=== PATIENT | male | born 1930 | race American Indian/Alaskan Native ===

== ENCOUNTER 2016-03-14 01:58 | Inpatient (IN) | payer MEDICARE ==
[2016-03-14] MEDS ORDERED: ROCEPHIN/NS 1 GM/50 ML 1 GM/50 ML BAG IV ONE (02:05)
[2016-03-14] MEDS ORDERED: NACL 0.9% 1000 ML 2,000 ML IV ONE (02:05)
[2016-03-14] MEDS ORDERED: TYLENOL PR ONE ×2 (02:14→02:32)
--- NOTE | 2016-03-14 02:16 | Emergency Department Report ---
ED General Adult HPI - General Chief complaint: Dyspnea/Respdistress Stated complaint: DIFFICULTY IN BREATHING Time Seen by Provider: 03/14/16 02:02 Source: EMS Mode of arrival: Ambulatory Limitations: Altered Mental Status, Physical Limitation - History of Present Illness Initial comments: This is an 86-year-old individual who comes in significant distress must snf. All of the history comes from EMS personnel as well as old records. He was noted the patient to be in respiratory distress. He was started on a 15 nonrebreather. In this reported he was minimally responsive for them when they arrived on scene. They indicate the senior living reported his decline just this evening. - Related Data Home Medications Medication Instructions Recorded Confirmed Last Taken Acetaminophen [Acetaminophen TAB] 325 mg PO PRN PRN 01/14/14 03/14/16 Unknown Aspirin [Aspirin BABY CHEW TAB] 81 mg PO DAILY 01/14/14 03/14/16 Unknown Bimatoprost [Lumigan 0.01%] 1 each OU QHS 01/14/14 03/14/16 Unknown Carbidopa/Levodopa 25-100 [Sinemet 1 each PO Q8H 01/14/14 03/14/16 Unknown 25/100] Cholecalciferol (Vitamin D3) 1 each PO DAILY 01/14/14 03/14/16 Unknown [Vitamin D] Docusate Sodium [Colace CAP] 1 each PO PRN PRN 01/14/14 03/14/16 Unknown Dorzolamide 2% (Nf) [Trusopt] 1 each OD BID 01/14/14 03/14/16 Unknown ENTACAPONE (nf) [Comtan (Nf)] 200 mg PO TID 01/14/14 03/14/16 Unknown Lidocaine 5% Patch [Lidoderm 5%] 1 each TD BID 01/14/14 03/14/16 Unknown Omeprazole [PriLOSEC] 20 mg PO DAILY 01/14/14 03/14/16 Unknown Selegiline HCl 5 mg PO BID 01/14/14 03/14/16 Unknown Previous Rx's Medication Instructions Recorded Last Taken Type amLODIPine [Norvasc] 2.5 mg PO DAILY #30 tablet 01/17/14 Unknown Rx Allergies Allergy/AdvReac Type Severity Reaction Status Date / Time No Known Allergies Allergy Verified 01/14/14 10:23 ED Review of Systems ROS: Stated complaint: DIFFICULTY IN BREATHING Other details as noted in HPI Comment: Unobtainable due to pts medical conditions (ED caveat due to unresponsiveness.) ED Past Medical Hx - Past Medical History Hx Hypertension: Yes Hx GERD: Yes Hx Psychiatric Treatment: Yes Hx Dementia: Yes Additional medical history: Glaucoma, Esophageal disorder, paralysis - Surgical History Additional Surgical History: unk - Social History Smoking Status: Unknown if ever smoked Substance Use Type: Other - Medications Home Medications: Home Medications Medication Instructions Recorded Confirmed Last Taken Type Acetaminophen [Acetaminophen TAB] 325 mg PO PRN PRN 01/14/14 03/14/16 Unknown History Aspirin [Aspirin BABY CHEW TAB] 81 mg PO DAILY 01/14/14 03/14/16 Unknown History Bimatoprost [Lumigan 0.01%] 1 each OU QHS 01/14/14 03/14/16 Unknown History Carbidopa/Levodopa 25-100 [Sinemet 1 each PO Q8H 01/14/14 03/14/16 Unknown History 25/100] Cholecalciferol (Vitamin D3) 1 each PO DAILY 01/14/14 03/14/16 Unknown History [Vitamin D] Docusate Sodium [Colace CAP] 1 each PO PRN PRN 01/14/14 03/14/16 Unknown History Dorzolamide 2% (Nf) [Trusopt] 1 each OD BID 01/14/14 03/14/16 Unknown History ENTACAPONE (nf) [Comtan (Nf)] 200 mg PO TID 01/14/14 03/14/16 Unknown History Lidocaine 5% Patch [Lidoderm 5%] 1 each TD BID 01/14/14 03/14/16 Unknown History Omeprazole [PriLOSEC] 20 mg PO DAILY 01/14/14 03/14/16 Unknown History Selegiline HCl 5 mg PO BID 01/14/14 03/14/16 Unknown History amLODIPine [Norvasc] 2.5 mg PO DAILY #30 tablet 01/17/14 03/14/16 Unknown Rx ED Physical Exam - General Limitations: Altered Mental Status, Physical Limitation General appearance: obtunded, other (very cachectic thin frail-appearing) - Head Head exam: Present: atraumatic, normocephalic - Eye Eye exam: Present: other (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 Left eye appearing glazed over. Minimally responsive pupil on the left eye at 3 mm.) - ENT ENT exam: Present: mucous membranes dry, other (no posterior pharyngeal erythema.) - Neck Neck exam: Absent: lymphadenopathy, thyromegaly - Respiratory Respiratory exam: Present: respiratory distress (cold being like breathing), rhonchi, decreased breath sounds (diffusely but most prominent in the right base ) - Cardiovascular Cardiovascular Exam: Present: tachycardia. Absent: systolic murmur, diastolic murmur - GI/Abdominal GI/Abdominal exam: Present: soft, normal bowel sounds. Absent: pulsatile mass - Extremities Exam Extremities exam: Present: other (muscle wasting diffusely with contractures). Absent: pedal edema (cool distal pedal pulses bilaterally) - Back Exam Back exam: Absent: vertebral tenderness, rash noted - Neurological Exam Neurological exam: Present: other (initially with no spontaneous movement but for that noted with breathing. Minimal withdrawal to painful stimuli.) - Skin Skin exam: Present: dry, intact, other (somewhat sallow appearing) ED Course Vital Signs 03/14/16 03/14/16 03/14/16 01:50 02:00 02:11 Temperature Pulse Rate 183 H 180 H 180 H Pulse Rate [ Left Radial] Respiratory 39 H 44 H 40 H Rate Blood Pressure 80/48 80/48 Blood Pressure [Left Arm] O2 Sat by Pulse 81 L 100 99 Oximetry 03/14/16 03/14/16 03/14/16 02:21 02:31 02:33 Temperature 102.6 F H Pulse Rate 122 H Pulse Rate [ Left Radial] Respiratory 42 H Rate Blood Pressure 80/48 80/48 Blood Pressure [Left Arm] O2 Sat by Pulse 89 Oximetry 03/14/16 03/14/16 03/14/16 02:36 02:41 02:51 Temperature Pulse Rate 112 H 123 H Pulse Rate [ Left Radial] Respiratory 30 H 43 H 40 H Rate Blood Pressure 88/49 88/49 Blood Pressure [Left Arm] O2 Sat by Pulse 81 L 78 L 93 Oximetry 03/14/16 03/14/16 03/14/16 03:01 03:11 03:21 Temperature Pulse Rate 103 H 140 H 114 H Pulse Rate [ Left Radial] Respiratory 39 H 37 H 41 H Rate Blood Pressure 94/55 94/55 84/45 Blood Pressure [Left Arm] O2 Sat by Pulse 37 L 66 L 87 Oximetry 03/14/16 03/14/16 03/14/16 03:31 03:40 03:51 Temperature Pulse Rate 121 H 110 H 116 H Pulse Rate [ Left Radial] Respiratory 39 H 38 H 42 H Rate Blood Pressure 84/45 81/46 81/46 Blood Pressure [Left Arm] O2 Sat by Pulse 100 80 L 99 Oximetry 03/14/16 03/14/16 03/14/16 04:00 04:11 04:35 Temperature 100.1 F H Pulse Rate 105 H 110 H Pulse Rate [ Left Radial] Respiratory 38 H 39 H Rate Blood Pressure 78/51 81/46 Blood Pressure [Left Arm] O2 Sat by Pulse 97 94 Oximetry 03/14/16 05:03 Temperature 100.1 F H Pulse Rate Pulse Rate [ 102 H Left Radial] Respiratory 22 Rate Blood Pressure Blood Pressure 78/43 [Left Arm] O2 Sat by Pulse 98 Oximetry - Reevaluation(s) Reevaluation #1: 03/14/16 05:49 Patient is clearly quite ill upon presentation here. Rectal temperature demonstrated 102 patient was given rectal Tylenol. He was given a 2 L saline bolus. He was then started fluids at 250 an hour. He started to have some urine output after the first 2 hours here. Labs are noted. It is very high. Source does appear to be right middle lobe infiltrate. Started empirically on Rocephin. I did add vancomycin after seeing the infiltrate to cover for possible nosocomial infections. Blood pressure was initially quite labile here. It has improved with IV fluids. Heart rate was also noted to be very rapid in the 180s. Also with fluids this did seem to normalize and she is now in sinus rhythm persistently. I did speak with the daughter on the phone to verify his DO NOT RESUSCITATE status. She does concur with this. I am quite concerned about this gentleman. Even if he does make it through this initial event, I suspect there will be some sequelae. Routine sepsis protocol followed blood cultures were obtained urine is still pending at this time lactate is pending at this time and admitted to telemetry bed due to not being a resuscitate candidate. His neurologic status has improved while here as well he is moving arms and legs spontaneously now he is making some head movements as well as some underlying noises. He still seems to be likely coherent of his surroundings. I do not know what his baseline is. He looks quite rough in general. I have some suspicion that he is not that far off his baseline. ED Medical Decision Making - Lab Data Result diagrams: 03/14/16 02:43 03/14/16 02:43 - EKG Data -: EKG Interpreted by Me (atrial fibrillation with RVR at [address]-T wave changes) - EKG Data When compared to previous EKG there are: changes noted (now with afib) - Radiology Data Radiology results: image reviewed interpreted by me: Very thin appearing. Right middle lobe pneumonia noted no pneumothorax. Normal cardiac silhouette. Very poor bone density noted. Critical Care Time: Yes Critical care time in (mins) excluding proc time.: 35 Critical care attestation.: If time is entered above; I have spent that time in minutes in the direct care of this critically ill patient, excluding procedure time. ED Disposition Clinical Impression: Septic shock, Acute hypernatremia, Dehydration Pneumonia Qualifiers: Pneumonia type: due to unspecified organism Laterality: right Lung location: middle lobe of lung Qualified Code(s): J18.9 - Pneumonia, unspecified organism Altered mental status Qualifiers: Altered mental status type: stupor Qualified Code(s): R40.1 - Stupor Renal failure, acute Qualifiers: Acute renal failure type: unspecified Qualified Code(s): N17.9 - Acute kidney failure, unspecified Disposition: OP ADMITTED IP TO THIS HOSP Is pt being admited?: Yes Does the pt Need Aspirin: No Condition: Fair
[2016-03-14 02:45] LABS: ISTAT Base Excess -9; ISTAT HCO3 17.7; ISTAT PH 7.312 (7.35-7.45); ISTAT PO2 64 (80-105); ISTAT SO2 90; ISTAT TCO2 19
[2016-03-14] MEDS ORDERED: VANCOMYCIN/NS 1 GM/250 ML 1 GM/250 ML BAG IV ONE (03:12)
[2016-03-14 03:13] LABS: Albumin 2.6 g/dL (3.9-5); Albumin/Globulin Ratio 0.7 %; BUN/Creatinine Ratio 20.5; Bilirubin,Total 0.5 mg/dL (0.1-1.2); Calcium 8.7 mg/dL (8.4-10.2); Potassium 4.6 mmol/L (3.6-5.0); Total Protein 6.5 g/dL (6.3-8.2)
[2016-03-14] MEDS ORDERED: NACL 0.9% 1000 ML IV ONE (03:23)
[2016-03-14 03:26] LABS: Hematocrit 39.2 % (35.5-45.6); Hemoglobin 12.7 gm/dl (11.8-15.2); Mean Corpuscular HGB Conc 33 % (32-34); Mean Corpuscular Hemoglobin 31 pg (28-32); Mean Corpuscular Volume 95 fl (84-94); Platelet Count 287 K/mm3 (140-440); Red Blood Count 4.12 M/mm3 (3.65-5.03); Red Cell Distribution Width 15.1 % (13.2-15.2); White Blood Count 5.6 K/mm3 (4.5-11.0)
[2016-03-14] MEDS ORDERED: NACL 0.9% 1000 ML 1,000 ML IV ONE (03:26)
[2016-03-14 03:36] LABS: INR 1.41 (0.87-1.13)
[2016-03-14 04:31] LABS: Basophils % (Manual) 0 % (0.0-1.8); Blastocytes % (Manual) 0 %; Eosinophils % (Manual) 0 % (0.0-4.3)
[2016-03-14 04:32] LABS: Anisocytosis 1+; Diff Status Complete
[2016-03-14 04:38] LABS: Bacteria,Urine 1+ /HPF (Negative); Bilirubin,Urine NEG (Negative); Blood,Urine SM (Negative); Ketones,Urine TR mg/dL (Negative); Leukocyte Esterase,Urine NEG (Negative); Mucus,Urine FEW /HPF; Nitrite,Urine NEG (Negative); Urobilinogen,Urine < 2.0 mg/dL (<2.0)
--- NOTE | 2016-03-14 06:26 | History and Physical Report ---
History of Present Illness Date of examination: 03/14/16 Date of admission: 03/14/16 03:38 Chief complaint: RESPIRATORY DISTRESS AND FEVER FOR ONE DAY. ALTERED SENSORIUM 1 DAY History of present illness: 86 YEAR OLD AAM SENT FROM [facility] FOR [facility]HAB[facility]ATION FOR RESP DISTRESS AND FEVER. 1 DAY DURATION WAS HYPOTENSIVE TOO AT [facility] COUGH PRESENT Past History Past Medical History: GERD, hypertension, other (Parkinsonism) Past Surgical History: No surgical history Social history: AND/DNR-allow natural , other ([facility]) Medications and Allergies Allergies Allergy/AdvReac Type Severity Reaction Status Date / Time No Known Allergies Allergy Verified 01/14/14 10:23 Home Medications Medication Instructions Recorded Confirmed Last Taken Type Acetaminophen [Acetaminophen TAB] 325 mg PO PRN PRN 01/14/14 03/14/16 Unknown History Aspirin [Aspirin BABY CHEW TAB] 81 mg PO DAILY 01/14/14 03/14/16 Unknown History Bimatoprost [Lumigan 0.01%] 1 each OU QHS 01/14/14 03/14/16 Unknown History Carbidopa/Levodopa 25-100 [Sinemet 1 each PO Q8H 01/14/14 03/14/16 Unknown History 25/100] Cholecalciferol (Vitamin D3) 1 each PO DAILY 01/14/14 03/14/16 Unknown History [Vitamin D] Docusate Sodium [Colace CAP] 1 each PO PRN PRN 01/14/14 03/14/16 Unknown History Dorzolamide 2% (Nf) [Trusopt] 1 each OD BID 01/14/14 03/14/16 Unknown History ENTACAPONE (nf) [Comtan (Nf)] 200 mg PO TID 01/14/14 03/14/16 Unknown History Lidocaine 5% Patch [Lidoderm 5%] 1 each TD BID 01/14/14 03/14/16 Unknown History Omeprazole [PriLOSEC] 20 mg PO DAILY 01/14/14 03/14/16 Unknown History Selegiline HCl 5 mg PO BID 01/14/14 03/14/16 Unknown History amLODIPine [Norvasc] 2.5 mg PO DAILY #30 tablet 01/17/14 03/14/16 Unknown Rx Active Meds: Active Medications Sodium Chloride (Nacl 0.9% 1000 Ml) 1,000 mls @ 250 mls/hr IV ONCE ONE Stop: 03/14/16 07:25 Last Admin: 03/14/16 03:27 Dose: 250 mls/hr Review of Systems All systems: negative Constitutional: weight loss, weakness, poor appetite Cardiovascular: shortness of breath Respiratory: cough, congestion Genitourinary Male: dysuria Neurological: change in mentation, confusion, memory loss Psychiatric: depression Exam - Constitutional Vitals: Temp Pulse Resp BP Pulse Ox 100.1 F H 102 H 22 78/43 98 03/14/16 05:03 03/14/16 05:03 03/14/16 05:03 03/14/16 05:03 03/14/16 05:03 General appearance: Present: no acute distress, well-nourished - EENT Eyes: Present: exopthalmos, discharge (RT EYE BLIND) ENT: hearing intact, clear oral mucosa - Neck Neck: Present: supple, normal ROM - Respiratory Respiratory effort: normal Respiratory: bilateral: CTA - Cardiovascular Heart Sounds: Present: S1 & S2. Absent: rub, click - Extremities Extremities: pulses symmetrical, No edema Peripheral Pulses: within normal limits - Abdominal General gastrointestinal: Present: soft, non-tender, non-distended, normal bowel sounds Male genitourinary: Present: normal - Integumentary Integumentary: Present: clear, warm, dry - Musculoskeletal Musculoskeletal: gait normal, strength equal bilaterally - Psychiatric Psychiatric: appropriate mood/affect, intact judgment & insight - Neurologic Neurologic: CNII-XII intact, moves all extremities Results - Labs CBC & Chem 7: 03/14/16 02:43 03/14/16 02:43 Labs: Abnormal lab results 03/14/16 Range/Units 04:56 Lactic Acid 5.8 H* (0.7-2.0) mmol/L Assessment and Plan - Patient Problems (1) Acute hypernatremia Current Visit: Yes Status: Acute (2) Altered mental status Current Visit: Yes Status: Acute Qualifiers: Altered mental status type: stupor Coma depth: C Coma timing: C Qualified Code(s): R40.1 - Stupor (3) Dehydration Current Visit: Yes Status: Acute (4) Renal failure, acute Current Visit: Yes Status: Acute Qualifiers: Acute renal failure type: unspecified Qualified Code(s): N17.9 - Acute kidney failure, unspecified (5) Septic shock Current Visit: Yes Status: Acute
[2016-03-14] MEDS ORDERED: ENTACAPONE 200 MG PO SCH (08:00)
[2016-03-14] MEDS: D5W 1,000 ML IV SCH ×3 (09:06→23:51)
[2016-03-14] MEDS: ZOSYN/NS 2.25 GM/50ML 2.25 GM/50 ML BAG IV SCH ×3 (09:06→23:13)
--- NOTE | 2016-03-14 09:15 | XRay Report ---
Single view chest: History: Fever and sepsis. Findings: Borderline cardiomegaly. Ill-defined airspace opacities left upper lobe right upper and lower lobe and left lower lobe. Normal CP angles. Probable underlying COPD. Impression: Bilateral pneumonia.
[2016-03-14] MEDS ORDERED: DORZOLAMIDE 2% OD SCH (10:00)
[2016-03-14] MEDS ORDERED: NON-FORMULARY (Omeprazole [Prilosec] 20 MG) PO SCH (10:00)
[2016-03-14] MEDS: LIDODERM 5% TD SCH ×2 (11:00→23:16)
[2016-03-14] MEDS: SINEMET PO SCH ×3 (12:50→23:43)
[2016-03-14] MEDS: PROTONIX PO SCH (12:50)
[2016-03-14 20:52] LABS: ISTAT Base Excess -4; ISTAT HCO3 20.6; ISTAT PCO2 33.9 (35-45); ISTAT PH 7.393 (7.35-7.45); ISTAT PO2 213 (80-105); ISTAT SO2 100; ISTAT TCO2 22
[2016-03-14] MEDS ORDERED: XALATAN 0.005% OU SCH (22:00)
[2016-03-14] MEDS ORDERED: BIMATOPROST OU SCH (22:00)
[2016-03-15] MEDS: SINEMET PO SCH ×2 (05:40→14:23)
[2016-03-15] MEDS: ZOSYN/NS 2.25 GM/50ML 2.25 GM/50 ML BAG IV SCH ×2 (05:42→14:22)
[2016-03-15 06:12] LABS: BUN/Creatinine Ratio 29.09; Calcium 8.5 mg/dL (8.4-10.2); Chloride 111.8 mmol/L (98-107); Phosphorous 1.9 mg/dL (2.5-4.5)
[2016-03-15 06:49] LABS: Potassium 3.4 mmol/L (3.6-5.0)
[2016-03-15] MEDS: D5W 1,000 ML IV SCH (07:24)
--- NOTE | 2016-03-15 07:31 | Consultation ---
History of Present Illness - Reason for Consult Consult date: 03/14/16 acute renal failure, hypernatremia, hypokalemia - History of Present Illness Patient is an 86 year old AAM with history significant for HTN, Parkinson's disease and [place] resident who was brought into the ED with respiratory distress. Unable to obtain nay history from patient at this time. Information obtained from the previous documentation. Patient was minimally responsive when the EMS arrived. He was found to have creatinine of 4 and Lactate of 9. His creatinine was 1.4 back in 01/2014. Past History Past Medical History: GERD, hypertension, other (Parkinsonism) Past Surgical History: No surgical history Social history: AND/DNR-allow natural , other ([facility]) Medications and Allergies Allergies Allergy/AdvReac Type Severity Reaction Status Date / Time No Known Allergies Allergy Verified 01/14/14 10:23 Home Medications Medication Instructions Recorded Confirmed Last Taken Type Acetaminophen [Acetaminophen TAB] 325 mg PO PRN PRN 01/14/14 03/14/16 Unknown History Aspirin [Aspirin BABY CHEW TAB] 81 mg PO DAILY 01/14/14 03/14/16 Unknown History Bimatoprost [Lumigan 0.01%] 1 each OU QHS 01/14/14 03/14/16 Unknown History Carbidopa/Levodopa 25-100 [Sinemet 1 each PO Q8H 01/14/14 03/14/16 Unknown History 25/100] Cholecalciferol (Vitamin D3) 1 each PO DAILY 01/14/14 03/14/16 Unknown History [Vitamin D] Docusate Sodium [Colace CAP] 1 each PO PRN PRN 01/14/14 03/14/16 Unknown History Dorzolamide 2% (Nf) [Trusopt] 1 each OD BID 01/14/14 03/14/16 Unknown History ENTACAPONE (nf) [Comtan (Nf)] 200 mg PO TID 01/14/14 03/14/16 Unknown History Lidocaine 5% Patch [Lidoderm 5%] 1 each TD BID 01/14/14 03/14/16 Unknown History Omeprazole [PriLOSEC] 20 mg PO DAILY 01/14/14 03/14/16 Unknown History Selegiline HCl 5 mg PO BID 01/14/14 03/14/16 Unknown History amLODIPine [Norvasc] 2.5 mg PO DAILY #30 tablet 01/17/14 03/14/16 Unknown Rx Active Meds: Active Medications Carbidopa/Levodopa (Sinemet) 1 each PO Q8HR [facility] Last Admin: 03/15/16 05:40 Dose: Not Given Dextrose (D5w) 1,000 mls @ 150 mls/hr IV DIRECT [facility]INA Last Admin: 03/15/16 07:24 Dose: 150 mls/hr Piperacillin Sod/Tazobactam Sod (Zosyn/Ns 2.25 Gm/50ml) 2.25 gm in 50 mls @ 100 mls/hr IV Q8HR [facility]INA PRN Reason: Protocol Last Admin: 03/15/16 05:42 Dose: 100 mls/hr Latanoprost (Xalatan 0.005%) 1 drops OU QHS [facility] Last Admin: 03/14/16 23:59 Dose: 1 drops Lidocaine (Lidoderm 5%) 1 each TD BID [facility] Last Admin: 03/14/16 23:16 Dose: 1 each Miscellaneous Medication (Dorzolamide 2% (Nf)) 1 each OD BID [facility] Miscellaneous Medication (Entacapone) 200 mg PO TID [facility] Pantoprazole Sodium (Protonix) 20 mg PO QDAY [facility] Last Admin: 03/14/16 12:50 Dose: Not Given Review of Systems ROS unobtainable: due to mental status Exam - Vital Signs Vital signs: Vital Signs Pulse Resp Pulse Ox 183 H 39 H 81 L 03/14/16 01:50 03/14/16 01:50 03/14/16 01:50 - General Appearance General appearance: cachectic, frail, other (mild distress due to shortness of breath) EENT: mucous membranes dry, sclerotic cornea Neck: Present: neck supple Respiratory: Other (coarse breath sounds) Heart: regular, S1S2 Gastrointestinal: Present: normoactive bowel sounds. Absent: tenderness, distended Integumentary: no rash, warm and dry Neurologic: other (non-verbal and not following any command) Musculoskeletal: Present: other (no edema) Results - Lab Results 03/14/16 02:43 03/15/16 12:30 Most recent lab results Calcium 8.5 mg/dL (8.4-10.2) 03/15/16 05:05 Phosphorus 1.9 mg/dL (2.5-4.5) L 03/15/16 05:05 Assessment and Plan - Patient Problems (1) GILBERTO (acute kidney injury) Current Visit: Yes Status: Acute Plan to address problem: Hemodynamic Acute Kidney Injury in the setting of volume depletion and hypotension. Creatinine is improving. 500 ml NS bolus. (2) Acute hypernatremia Current Visit: Yes Status: Acute Plan to address problem: Sodium level is improving. Continue IV D5W. (3) Lactic acidosis Current Visit: Yes Status: Acute Plan to address problem: Lactic acid level is trending down. (4) Pneumonia Current Visit: Yes Status: Acute Qualifiers: Pneumonia type: due to unspecified organism Aspiration pneumonia type: A Laterality: right Lung location: middle lobe of lung Qualified Code(s): J18.9 - Pneumonia, unspecified organism
--- NOTE | 2016-03-15 08:47 | Admit Criteria Form ---
Admission Criteria Documentation: HYPONATREMIA; HYPERNATREMIA; HYPOKALEMIA; HYPERKALEMIA; HYPOCALCEMIA; HYPERCALCEMIA Clinical Indications for Inpatient Care (Place 'X' for any and all applicable criteria): Ongoing inpatient care may be indicated for ANY ONE of the following [G](1)(2)(3 )(5): [ ]I. Hyponatremia with ANY ONE of the following: [ ]a) Sodium less than 130 mEq/L (mmol/L) (new) (6)(22) [ ]b) Sodium less than 135 mEq/L (mmol/L) with ANY ONE of the following: [ ]i) Severe medical etiology requiring inpatient management (eg, heart failure, hypovolemia) [ ]ii) Altered mental status [ ]iii) Seizures [X ]II. Hypernatremia with ANY ONE of the following: [X ]a) Sodium greater than 155 mEq/L (mmol/L) [ ]b) Sodium greater than 150 mEq/L (mmol/L) with ANY ONE of the following: [ ] i) Altered mental status [ ]ii) Seizures [ ]iii) Severe medical etiology (eg, hypovolemia, diabetes insipidus) [ ]iv) Severe weakness [ ]v) Severe medical etiology (eg, hemolysis, infection, drug overdose) [ ]III. Hypokalemia with ANY ONE of the following: [ ]a) Potassium less than 2.5 mEq/L (mmol/L) despite outpatient and emergency treatment [ ]b) Potassium less than 3.0 mEq/L (mmol/L) with ANY ONE of the following: [ ]i) Weakness [ ]ii) Cardiac abnormality (eg, arrhythmia, conduction disturbance) [ ]iii) Cardiac ischemia [ ]iv) Ileus [ ]v) Ongoing medical cause requiring inpatient management. ( e.g., acute renal wasting, SIADH) [ ]vi) Other severe symptoms [ ] IV. Hyperkalemia with ANY ONE of the following: [ ]a) Potassium greater than 6.5 mEq/L (mmol/L) [ ]b) Potassium greater than 5 mEq/L (mmol/L) with ANY ONE of the following: [ ]i) Severe ECG findings [H] [ ]ii) Acute worsening of renal failure (creatinine greater than 2.5 mg/dL (221 micromoles/L) or significant elevation for age and size) [ ] V. Hypocalcemia with ANY ONE of the following: [ ]a) Calcium less than 7 mg/dL (1.75 mmol/L) despite outpatient and emergency treatment(19) [ ]b) Calcium less than 8 mg/dL (2 mmol/L) with significant symptoms or findings; examples include: [ ]i) Cardiac abnormality (eg, arrhythmia or conduction disturbance) [ ]ii) Altered mental status [ ]iii) Seizures [ ]iv) Breathing difficulty [ ]v) Muscle spasms [ ]. Hypercalcemia with ANY ONE of the following: [ ]a) Calcium greater than 14 mg/dL (3.5 mmol/L) [ ]b) Calcium greater than 12 mg/dL (3 mmol/L) with ANY ONE of the following: [ ]i) Significant dehydration or hypovolemia as indicated by ANY ONE of the following(2): [ ]1. Clinically significant dehydration as indicated by ANY ONE of the following: [ ]A. Acute loss of weight from baseline (5% of body weight in adults, 9% in pediatric patients) [ ]B. Hemodynamic instability [ ]C. Acute renal failure [ ]D. Serum sodium greater than 150 mEq/L (mmol/L) [ ]2) Dehydration that is persistent indicated by ALL of the following: [ ]A. Oral rehydration therapy not tolerated or insufficient to adequately correct dehydration [ ]B. Appropriate intravenous treatment (eg, fluids ) does not readily correct dehydration ie, after 12 to 24 hours of treatment) [ ]ii) Significant symptoms or findings; examples include: [ ]1) Altered mental status [ ]2) Cardiac abnormality (eg, arrhythmia, conduction disturbance) [ ]3) Cardiac abnormality (eg, arrhythmia, conduction disturbance) The original [email or web address] content created by [email or web address] has been revised. The portions of the content which have been revised are identified through the use of italic text or in bold, and [facility] has neither reviewed nor approved the modified material. All other unmodified content is copyright [facility] [employer] Please see references footnoted in the original [facility] [employer] edition 2016 Admission Criteria Met: Yes
[2016-03-15] MEDS ORDERED: NACL 0.9% 500 ML 500 ML IV ONE (10:30)
[2016-03-15] MEDS ORDERED: KPHOS 15 MMOL in NACL 0.9% 250ML 250 ML IV ONE (10:30)
[2016-03-15] MEDS: PROTONIX PO SCH (11:23)
[2016-03-15] MEDS: LIDODERM 5% TD SCH (11:40)
[2016-03-15 12:54] LABS: BUN/Creatinine Ratio 29.5; Calcium 8.4 mg/dL (8.4-10.2); Chloride 108.8 mmol/L (98-107); Potassium 3.8 mmol/L (3.6-5.0)
--- NOTE | 2016-03-15 19:33 | Progress Note ---
Assessment and Plan - Patient Problems (1) Acute respiratory failure with hypoxemia Current Visit: Yes Status: Acute Plan to address problem: supplemental oxygen, nebs, aspiration precautions, pulmonary toilet, IV abx, (2) Bilateral pneumonia Current Visit: Yes Status: Acute Qualifiers: Pneumonia type: P Aspiration pneumonia type: A Lung location: L Plan to address problem: Pneumonia Protocol: Iv abx, ivf, supportive care, nebulizer, supplemental oxygen. (3) Encephalopathy Current Visit: Yes Status: Acute Plan to address problem: Treat pneumonia, (4) Lactic acidosis Current Visit: Yes Status: Acute Plan to address problem: IVF replacement, supportive care, treat pneumonia (5) DVT prophylaxis Current Visit: Yes Status: Acute History Interval history: Pt lying in bed, Pt stuporous, chronically ill appearing, in mild distress. No reported nursing events. Case management consulted regarding hospice evaluation. Hospitalist Physical - Constitutional Vitals: Temp Pulse Resp BP Pulse Ox 99.0 F 95 H 18 95/51 92 03/15/16 16:00 03/15/16 16:00 03/15/16 16:00 03/15/16 16:00 03/15/16 09:41 General appearance: Present: no acute distress, cachectic - Neck Neck: Present: supple - Respiratory Respiratory: bilateral: diminished - Cardiovascular Rhythm: regular Heart Sounds: Present: S1 & S2 - Extremities Extremities: no ischemia Peripheral Pulses: within normal limits - Abdominal General gastrointestinal: soft, non-tender, non-distended - Integumentary Integumentary: Present: clear, dry - Psychiatric Psychiatric: no intact judgment & insight, no memory intact - Neurologic Neurologic: no gait normal Results - Labs CBC & Chem 7: 03/14/16 02:43 03/15/16 12:30 Labs: Laboratory Last Values WBC 5.6 K/mm3 (4.5-11.0) 03/14/16 02:43 RBC 4.12 M/mm3 (3.65-5.03) 03/14/16 02:43 Hgb 12.7 gm/dl (11.8-15.2) 03/14/16 02:43 Hct 39.2 % (35.5-45.6) 03/14/16 02:43 MCV 95 fl (84-94) H 03/14/16 02:43 MCH 31 pg (28-32) 03/14/16 02:43 MCHC 33 % (32-34) 03/14/16 02:43 RDW 15.1 % (13.2-15.2) 03/14/16 02:43 Plt Count 287 K/mm3 (140-440) 03/14/16 02:43 Add Manual Diff Complete 03/14/16 02:43 Total Counted 100 03/14/16 02:43 Seg Neuts % (Manual) 76.0 % (40.0-70.0) H 03/14/16 02:43 Band Neutrophils % 0 % 03/14/16 02:43 Lymphocytes % (Manual) 15.0 % (13.4-35.0) 03/14/16 02:43 Reactive Lymphs % (Man) 0 % 03/14/16 02:43 Monocytes % (Manual) 9.0 % (0.0-7.3) H 03/14/16 02:43 Eosinophils % (Manual) 0 % (0.0-4.3) 03/14/16 02:43 Basophils % (Manual) 0 % (0.0-1.8) 03/14/16 02:43 Metamyelocytes % 0 % 03/14/16 02:43 Myelocytes % 0 % 03/14/16 02:43 Promyelocytes % 0 % 03/14/16 02:43 Blast Cells % 0 % 03/14/16 02:43 Nucleated RBC % Not Reportable 03/14/16 02:43 Seg Neutrophils # Man 4.3 K/mm3 (1.8-7.7) 03/14/16 02:43 Band Neutrophils # 0.0 K/mm3 03/14/16 02:43 Lymphocytes # (Manual) 0.8 K/mm3 (1.2-5.4) L 03/14/16 02:43 Abs React Lymphs (Man) 0.0 K/mm3 03/14/16 02:43 Monocytes # (Manual) 0.5 K/mm3 (0.0-0.8) 03/14/16 02:43 Eosinophils # (Manual) 0.0 K/mm3 (0.0-0.4) 03/14/16 02:43 Basophils # (Manual) 0.0 K/mm3 (0.0-0.1) 03/14/16 02:43 Metamyelocytes # 0.0 K/mm3 03/14/16 02:43 Myelocytes # 0.0 K/mm3 03/14/16 02:43 Promyelocytes # 0.0 K/mm3 03/14/16 02:43 Blast Cells # 0.0 K/mm3 03/14/16 02:43 WBC Morphology Not Reportable 03/14/16 02:43 Hypersegmented Neuts Not Reportable 03/14/16 02:43 Hyposegmented Neuts Not Reportable 03/14/16 02:43 Hypogranular Neuts Not Reportable 03/14/16 02:43 Smudge Cells Not Reportable 03/14/16 02:43 Toxic Granulation Not Reportable 03/14/16 02:43 Toxic Vacuolation Not Reportable 03/14/16 02:43 Dohle Bodies Not Reportable 03/14/16 02:43 Pelger-Huet Anomaly Not Reportable 03/14/16 02:43 Hu Rods Not Reportable 03/14/16 02:43 Platelet Estimate Appears normal 03/14/16 02:43 Clumped Platelets Not Reportable 03/14/16 02:43 Plt Clumps, EDTA Not Reportable 03/14/16 02:43 Large Platelets Not Reportable 03/14/16 02:43 Giant Platelets Not Reportable 03/14/16 02:43 Platelet Satelliting Not Reportable 03/14/16 02:43 Plt Morphology Comment Not Reportable 03/14/16 02:43 RBC Morphology Not Reportable 03/14/16 02:43 Dimorphic RBCs Not Reportable 03/14/16 02:43 Polychromasia Not Reportable 03/14/16 02:43 Hypochromasia Not Reportable 03/14/16 02:43 Poikilocytosis Not Reportable 03/14/16 02:43 Anisocytosis 1+ 03/14/16 02:43 Microcytosis Not Reportable 03/14/16 02:43 Macrocytosis Not Reportable 03/14/16 02:43 Spherocytes Not Reportable 03/14/16 02:43 Pappenheimer Bodies Not Reportable 03/14/16 02:43 Sickle Cells Not Reportable 03/14/16 02:43 Target Cells Not Reportable 03/14/16 02:43 Tear Drop Cells Not Reportable 03/14/16 02:43 Ovalocytes Not Reportable 03/14/16 02:43 Helmet Cells Not Reportable 03/14/16 02:43 [place] Bodies Not Reportable 03/14/16 02:43 [place] Rings Not Reportable 03/14/16 02:43 [place] Cells Not Reportable 03/14/16 02:43 Bite Cells Not Reportable 03/14/16 02:43 Crenated Cell Not Reportable 03/14/16 02:43 Elliptocytes Not Reportable 03/14/16 02:43 Acanthocytes (Spur) Not Reportable 03/14/16 02:43 Rouleaux Not Reportable 03/14/16 02:43 Hemoglobin C Crystals Not Reportable 03/14/16 02:43 Schistocytes Not Reportable 03/14/16 02:43 Malaria parasites Not Reportable 03/14/16 02:43 Robert Bodies Not Reportable 03/14/16 02:43 Hem Pathologist Commnt No 03/14/16 02:43 PT 17.2 Sec. (12.2-14.9) H 03/14/16 02:43 INR 1.41 (0.87-1.13) H 03/14/16 02:43 POC ABG pH 7.393 (7.35-7.45) 03/14/16 20:31 POC ABG pCO2 33.9 (35-45) L 03/14/16 20:31 POC ABG pO2 213 (80-105) H 03/14/16 20:31 POC ABG HCO3 20.6 03/14/16 20:31 POC ABG Total CO2 22 03/14/16 20:31 POC ABG O2 Sat 100 03/14/16 20:31 POC ABG Base Excess -4 03/14/16 20:31 FiO2 100 % 03/14/16 20:31 Sodium 147 mmol/L (137-145) H 03/15/16 12:30 Potassium 3.8 mmol/L (3.6-5.0) 03/15/16 12:30 Chloride 108.8 mmol/L (98-107) H 03/15/16 12:30 Carbon Dioxide 20 mmol/L (22-30) L 03/15/16 12:30 Anion Gap 22 mmol/L 03/15/16 12:30 BUN 59 mg/dL (9-20) H 03/15/16 12:30 Creatinine 2.0 mg/dL (0.8-1.5) H 03/15/16 12:30 Estimated GFR 39 ml/min 03/15/16 12:30 BUN/Creatinine Ratio 29.50 % 03/15/16 12:30 Glucose 141 mg/dL (75-100) H 03/15/16 12:30 Lactic Acid 4.8 mmol/L (0.7-2.0) H* 03/14/16 12:29 Calcium 8.4 mg/dL (8.4-10.2) 03/15/16 12:30 Phosphorus 1.9 mg/dL (2.5-4.5) L 03/15/16 05:05 Total Bilirubin 0.5 mg/dL (0.1-1.2) 03/14/16 02:43 AST 100 units/L (5-40) H 03/14/16 02:43 ALT 12 units/L (7-56) 03/14/16 02:43 Alkaline Phosphatase 68 units/L (35-129) 03/14/16 02:43 Total Creatine Kinase 1325 units/L (55-170) H 03/15/16 05:05 Troponin T 0.056 ng/mL (0.00-0.029) H 03/14/16 02:43 Total Protein 6.5 g/dL (6.3-8.2) 03/14/16 02:43 Albumin 2.6 g/dL (3.9-5) L 03/14/16 02:43 Albumin/Globulin Ratio 0.7 % 03/14/16 02:43 Triglycerides 81 mg/dL (2-149) 03/14/16 02:43 Cholesterol 88 mg/dL (50-199) 03/14/16 02:43 LDL Cholesterol Direct 33 mg/dL (50-130) L 03/14/16 02:43 HDL Cholesterol 39 mg/dL (40-59) L 03/14/16 02:43 Cholesterol/HDL Ratio 2.25 % 03/14/16 02:43 Urine Color Jessica (Yellow) 03/14/16 Unknown Urine Turbidity Slightly-cloudy (Clear) 03/14/16 Unknown Urine pH 5.0 (5.0-7.0) 03/14/16 Unknown Ur Specific [place] 1.023 (1.003-1.030) 03/14/16 Unknown Urine Protein 30 mg/dl mg/dL (Negative) 03/14/16 Unknown Urine Glucose (UA) Neg mg/dL (Negative) 03/14/16 Unknown Urine Ketones Tr mg/dL (Negative) 03/14/16 Unknown Urine Blood Sm (Negative) 03/14/16 Unknown Urine Nitrite Neg (Negative) 03/14/16 Unknown Urine Bilirubin Neg (Negative) 03/14/16 Unknown Urine Urobilinogen < 2.0 mg/dL (<2.0) 03/14/16 Unknown Ur Leukocyte Esterase Neg (Negative) 03/14/16 Unknown Urine WBC (Auto) 6.0 /HPF (0.0-6.0) 03/14/16 Unknown Urine RBC (Auto) 5.0 /HPF (0.0-6.0) 03/14/16 Unknown U Epithel Cells (Auto) < 1.0 /HPF (0-13.0) 03/14/16 Unknown Urine Bacteria (Auto) 1+ /HPF (Negative) 03/14/16 Unknown Hyaline Casts 7 /LPF 03/14/16 Unknown Urine Mucus Few /HPF 03/14/16 Unknown
[2016-03-15] MEDS ORDERED: LASIX IV ONE (20:40)
[2016-03-15 22:52] VITALS: BP 149/80
--- NOTE | 2016-03-15 23:35 | Event Note ---
Date: 03/15/16 Call to pronounce patient. time of 10:15pm
--- NOTE | 2016-03-16 06:38 | Discharge Summary ---
Providers - Providers Date of Admission: 03/14/16 03:38 Attending physician: ZACHARIAH ERNANDEZ 03/14/16 06:24 Consult to Physician [CONS] Routine Consulting Provider: KENNY BETHEA Reason For Exam: Acute renal failure Place consult to:: DR. BETHEA Notified:: DR. BETHEA Phone number called:: IN HOUSE Was contact made?: Yes If yes, spoke with:: [facility] Time called:: 09:10 Primary care physician: REIMBURSEMENT DIRECTOR Hospitalization Condition: Fair Hospital course: 86 YO Male [facility] admitted for Sepsis, Severe Dehydration, Malnutrition, Acute renal failure and lactic acidosis. Pt found to have Bilateral Pneumonia and Acute respiratory failure. PT treated with supportive care, IV abx, suplemental oxygen, IVF, and supportive care. Pt symptoms did not improve during hospital course. Pt found by nursing staff to have absent breathing and heartbeat. COde blue called. Pt treated IAW ACLS protocol without return of perfusing rythm. Pt pronounced . 35 minutes dedicated to patient discharge. Disposition: - Discharge Diagnoses (1) Acute respiratory failure with hypoxemia Status: Acute (2) Bilateral pneumonia Status: Acute Qualifiers: Pneumonia type: P Aspiration pneumonia type: A Lung location: L (3) Encephalopathy Status: Acute (4) Lactic acidosis Status: Acute (5) DVT prophylaxis Status: Acute (6) Septic shock Status: Acute Core Measure Documentation - Palliative Care Palliative Care/ Comfort Measures: Not Applicable - Core Measures Any of the following diagnoses?: none Exam - Constitutional Vitals: Temp Pulse Resp BP Pulse Ox 99.6 F 90 26 H 149/80 93 03/15/16 20:00 03/15/16 20:00 03/15/16 20:00 03/15/16 20:00 03/15/16 21:24 General appearance: Present: severe distress - Respiratory Respiratory: negative: other (absent) - Cardiovascular Rhythm: other (absent) - Extremities Extremity abnormal: cyanosis - Abdominal General gastrointestinal: Present: absent bowel sounds - Neurologic Neurologic: other (pupils fixed and dilated) Plan Follow up with: PRIMARY CAREMD [Primary Care Provider] - 3-5 Days
== END 2016-03-15 23:30 | DRG 871 ==
LOC: ED 01:58 → 3A 03:38
PROVIDERS: ADMIT Internal Medicine; ATTEND Internal Medicine
PROC: 4A033R1 Measurement of Arterial Saturation, Peripheral, Percutaneous Approach (ICD-10-PCS; principal; 2016-03-14)
DX: A41.9 Sepsis, unspecified organism (principal); R65.21 Severe sepsis with septic shock; J96.01 Acute respiratory failure with hypoxia; G93.40 Encephalopathy, unspecified; J69.0 Pneumonitis due to inhalation of food and vomit; N17.9 Acute kidney failure, unspecified; E87.0 Hyperosmolality and hypernatremia; E46 Unspecified protein-calorie malnutrition; Z68.1 Body mass index [BMI] 19.9 or less, adult; M62.82 Rhabdomyolysis; K21.9 Gastro-esophageal reflux disease without esophagitis; F03.90 Unspecified dementia, unspecified severity, without behavioral disturbance, psychotic disturbance, mood disturbance, and anxiety; K22.9 Disease of esophagus, unspecified; H40.9 Unspecified glaucoma; E86.0 Dehydration; I10 Essential (primary) hypertension; G20 Parkinson's disease; Z66 Do not resuscitate; Z51.5 Encounter for palliative care
CPT/HCPCS: 36415; 71010; 80048; 80053; 80061; 81001; 82140; 82550; 82803; 84100; 84484; 85007; 85025; 85610; 87040; 93005; 93010; 94760; 96365; 96367; 99291; J0696; J1940; J2543; J3370; J7030; J7040; J7050; J7070